=== PATIENT | female | born 1965 | race Caucasian/White ===

== ENCOUNTER 2017-03-10 10:25 | Day surgery (SDC) | payer OTHER ==
[~2017-03-10] VITALS: Ht 175.3 cm; Wt 81.7 kg
[~2017-03-10 10:25] MED LIST: ADVAIR 500/501 DISK IH; AMOXICILLIN875 MG PO; ATIVAN0.5 MG PO; BENAZEPRIL HCL5 MG PO; ESCITALOPRAM OX20 MG PO; FLEXERIL10 MG PO; HYDROXYZINE PAM50 MG; INDERAL10 MG PO; LORTAB 5-325 M1 EACH PO; MIRALAX17 GM PO; NAPROSYN500 MG PO; OXYCODONE-APAP1 EACH PO; PERCOCET 5/31 TABLET PO; PREDNISONE10 MG PO; PROMETHAZINE-CODEINE PO; PROVENTIL2.5 MG/3 M IH
[2017-03-10] MEDS ORDERED: AMBIEN5 MG PO (10:50)
[2017-03-10] MEDS ORDERED: KADIAN10 MG PO (10:50)
== END 2017-03-10 12:02 | disposition home or self-care (01) ==
LOC: PAIN 10:25
DX: M47.26 Other spondylosis with radiculopathy, lumbar region (principal); M47.16 Other spondylosis with myelopathy, lumbar region; M51.06 Intervertebral disc disorders with myelopathy, lumbar region; M96.1 Postlaminectomy syndrome, not elsewhere classified; J45.909 Unspecified asthma, uncomplicated; F41.8 Other specified anxiety disorders; M50.20 Other cervical disc displacement, unspecified cervical region; E78.00 Pure hypercholesterolemia, unspecified; Z79.891 Long term (current) use of opiate analgesic
CPT/HCPCS: J1030; J2250; J3010; S0020

== ENCOUNTER 2017-03-17 09:56 | Day surgery (SDC) | payer OTHER ==
[~2017-03-17] VITALS: Ht 175.3 cm; Wt 81.7 kg
[~2017-03-17 09:56] MED LIST changes: +AMBIEN5 MG PO; +KADIAN10 MG PO
== END 2017-03-17 11:30 | disposition home or self-care (01) ==
LOC: PAIN 09:56 → SDC 10:30 → PAIN 11:30
DX: M47.26 Other spondylosis with radiculopathy, lumbar region (principal); M47.16 Other spondylosis with myelopathy, lumbar region; M96.1 Postlaminectomy syndrome, not elsewhere classified; M48.06 Spinal stenosis, lumbar region; M47.812 Spondylosis without myelopathy or radiculopathy, cervical region; E78.00 Pure hypercholesterolemia, unspecified; J45.909 Unspecified asthma, uncomplicated; E66.3 Overweight; Z68.26 Body mass index [BMI] 26.0-26.9, adult; R03.0 Elevated blood-pressure reading, without diagnosis of hypertension; Z79.891 Long term (current) use of opiate analgesic
CPT/HCPCS: J1030; J2250; J3010; S0020

== ENCOUNTER 2017-06-09 09:51 | Day surgery (SDC) | payer OTHER ==
[~2017-06-09] VITALS: Ht 175.3 cm; Wt 81.6 kg
[~2017-06-09 09:51] MED LIST changes: +ADVAIR 250/501 DISK IH; +AMBIEN10 MG PO; -AMBIEN5 MG PO; +BRISDELLE7.5 MG PO; +MS CONTIN,ORAMO15 M1 PO; +PERCOCET 10/1 TABLET PO; +PROVENTIL,2.5 MG/3 M IH; +SUMATRIPTAN20 MG NS; +VENTOLIN HFA18 GM IH; +ZOCOR20 MG PO
== END 2017-06-09 12:02 | disposition home or self-care (01) ==
LOC: PAIN 09:51 → SDC 10:30 → PAIN 12:02
DX: M47.16 Other spondylosis with myelopathy, lumbar region (principal); M47.26 Other spondylosis with radiculopathy, lumbar region; M96.1 Postlaminectomy syndrome, not elsewhere classified; M47.812 Spondylosis without myelopathy or radiculopathy, cervical region; M48.061 Spinal stenosis, lumbar region without neurogenic claudication; J45.909 Unspecified asthma, uncomplicated; E66.3 Overweight; Z68.26 Body mass index [BMI] 26.0-26.9, adult; E78.00 Pure hypercholesterolemia, unspecified
CPT/HCPCS: J1030; J2250; J3010; S0020

== ENCOUNTER 2017-06-16 09:51 | Day surgery (SDC) | payer OTHER ==
[~2017-06-16] VITALS: Ht 175.3 cm; Wt 81.6 kg
== END 2017-06-16 11:10 | disposition home or self-care (01) ==
LOC: PAIN 09:51 → SDC 10:30 → PAIN 11:10
DX: M47.26 Other spondylosis with radiculopathy, lumbar region (principal); M51.16 Intervertebral disc disorders with radiculopathy, lumbar region; M47.16 Other spondylosis with myelopathy, lumbar region; M96.1 Postlaminectomy syndrome, not elsewhere classified; M48.061 Spinal stenosis, lumbar region without neurogenic claudication; M79.1 Myalgia; J45.909 Unspecified asthma, uncomplicated; F41.8 Other specified anxiety disorders; Z79.891 Long term (current) use of opiate analgesic
CPT/HCPCS: J1030; J2250; J3010; S0020

== ENCOUNTER 2018-01-01 11:03 | Day surgery (SDC) | payer OTHER ==
[~2018-01-01] VITALS: Ht 175.3 cm; Wt 86.2 kg
[~2018-01-01 11:03] MED LIST changes: +FLEXERIL5 MG PO; +MOTRIN800 MG PO
== END 2018-01-01 12:30 | disposition home or self-care (01) ==
LOC: PAIN 11:03 → SDC 11:45 → PAIN 12:30
DX: M47.16 Other spondylosis with myelopathy, lumbar region (principal); M54.16 Radiculopathy, lumbar region; M96.1 Postlaminectomy syndrome, not elsewhere classified; M99.83 Other biomechanical lesions of lumbar region; Z79.1 Long term (current) use of non-steroidal anti-inflammatories (NSAID); Z98.1 Arthrodesis status; J45.909 Unspecified asthma, uncomplicated; Z88.1 Allergy status to other antibiotic agents; Z88.5 Allergy status to narcotic agent; Z88.6 Allergy status to analgesic agent; Z88.8 Allergy status to other drugs, medicaments and biological substances; Z91.013 Allergy to seafood
CPT/HCPCS: J1100; J2250

== ENCOUNTER 2018-01-29 06:48 | Day surgery (SDC) | payer OTHER ==
[~2018-01-29] VITALS: Ht 175.3 cm; Wt 86.2 kg
[~2018-01-29 06:48] MED LIST changes: +IMITREX20 MG NS
== END 2018-01-29 08:34 | disposition home or self-care (01) ==
LOC: PAIN 06:48 → SDC 07:30 → PAIN 07:30
DX: M47.16 Other spondylosis with myelopathy, lumbar region (principal); M48.061 Spinal stenosis, lumbar region without neurogenic claudication; M96.1 Postlaminectomy syndrome, not elsewhere classified; M54.16 Radiculopathy, lumbar region; J45.909 Unspecified asthma, uncomplicated; E78.00 Pure hypercholesterolemia, unspecified; M79.1 Myalgia; Z79.891 Long term (current) use of opiate analgesic; Z88.6 Allergy status to analgesic agent
CPT/HCPCS: J0330; J1100; J2250